=== PATIENT | female | born 1990 | race African-American/Black ===

== ENCOUNTER 2019-12-25 16:29 | Inpatient (IN) | payer MEDICAID, OTHER ==
[~2019-12-25] VITALS: Ht 160 cm; Wt 129.5 kg
[2019-12-25 18:46] LABS: Basophils # (auto) 0 10 ^3/uL (0-0.2); Basophils % (auto) 0.4 % (0.0-2.0); Eosinophils # (auto) 0.1 10 ^3/uL (0-0.8); Eosinophils % (auto) 0.8 % (0.0-7.0); Hematocrit 38.6 % (36.0-46.0); Lymphocytes # (auto) 2.8 10 ^3/uL (0.4-5.4); Lymphocytes % (auto) 41.9 % (10.0-50.0); Mean Corpuscular Hgb Conc. 33.6 g/dL (32.0-36.0); Mean Corpuscular Volume 89.2 fL (80.0-100.0); Monocytes # (auto) 0.6 10 ^3/uL (0-1.3); Monocytes % (auto) 9.3 % (0.0-12.0); Neutrophils # (auto) 3.2 10 ^3/uL (1.6-8.6); Neutrophils % (auto) 47.6 % (37.0-80.0); Nucleated Red Blood Cells % 0.1 %; Platelet Count (auto) 264 10^3/uL (140-450); Red Blood Cells 4.33 10^6/uL (4.0-5.20); Red Cell Distribution Width 13.2 % (11.8-14.3); White Blood Cell 6.6 10^3/uL (4.4-10.8)
[2019-12-25 19:04] LABS: Albumin 3.6 g/dL (3.4-5.0); Calcium 8.9 mg/dL (8.5-10.1); Potassium 3.6 mmol/L (3.5-5.1)
[2019-12-25 19:06] LABS: BUN/Creatinine Ratio 9.6
[2019-12-25 19:08] LABS: Bilirubin, Total 0.2 mg/dL (0.2-1.0); Total Protein 7.5 g/dL (6.4-8.2)
[2019-12-25 19:28] LABS: Urine Bacteria NONE SEEN /hpf (None Seen); Urine Blood Negative /uL (Negative); Urine Hyaline Cast FEW /lpf (0 - 2); Urine Mucus FEW (None Seen); Urine Specific Gravity 1.021 (1.001-1.035); Urine WBC 1 /hpf (0 - 5)
[2019-12-25] MEDS ORDERED: DOCUSATE SOD 100 MG CAP PO PRN (21:00)
[2019-12-25] MEDS ORDERED: MORPHINE SULF INJ 2 MG/ML SYRINGE 1ML IV PRN (21:00)
[2019-12-25] MEDS ORDERED: TEMAZEPAM 15 MG CAP PO PRN (21:00)
[2019-12-25] MEDS ORDERED: ACETAMINOPHEN 325 MG TAB PO PRN (21:00)
[2019-12-25] MEDS ORDERED: LORazepam 0.5 MG TAB PO PRN (21:00)
[2019-12-25] MEDS: SODIUM CHLORIDE 0.9% 1,000 ML IV SCH (21:54)
[2019-12-25 23:23] VITALS: BP 130/80
--- NOTE | 2019-12-25 23:23 | NUR ---
[facility] admit from [facility] admitted to [facility]. Patient oriented to Ciara Perez, primary RN, unit, room, bed, and unit policies regarding patient care and visiting hours. Patient weighed by bedscale and encouraged to call if they need something. All questions and concerns addressed, patient verbalized understanding.
[2019-12-25] MEDS: ONDANSETRON HCL 4 MG/2 ML VIAL IV PRN (23:37)
--- NOTE | 2019-12-26 00:21 | NUR ---
Patient ambulated Patient ambulated to restroom independently with even, steady gait. Patient reconnected to IV fluids after returning to bed. Will continue to monitor.
[2019-12-26] MEDS ORDERED: CHOL20007 PO (00:57)
[2019-12-26] MEDS: HYDROcodone-ACET 5/325MG TAB PO PRN ×2 (01:31→20:11)
[2019-12-26] MEDS: SODIUM CHLORIDE 0.9% 1,000 ML IV SCH ×3 (03:06→10:05)
[2019-12-26 05:12] LABS: Basophils # (auto) 0 10 ^3/uL (0-0.2); Basophils % (auto) 0.4 % (0.0-2.0); Eosinophils # (auto) 0.1 10 ^3/uL (0-0.8); Eosinophils % (auto) 0.8 % (0.0-7.0); Hematocrit 35.7 % (36.0-46.0); Lymphocytes # (auto) 3.3 10 ^3/uL (0.4-5.4); Lymphocytes % (auto) 43.8 % (10.0-50.0); Mean Corpuscular Hgb Conc. 33.6 g/dL (32.0-36.0); Mean Corpuscular Volume 89.3 fL (80.0-100.0); Monocytes # (auto) 0.5 10 ^3/uL (0-1.3); Monocytes % (auto) 6.7 % (0.0-12.0); Neutrophils # (auto) 3.6 10 ^3/uL (1.6-8.6); Neutrophils % (auto) 48.3 % (37.0-80.0); Nucleated Red Blood Cells % 0.1 %; Platelet Count (auto) 247 10^3/uL (140-450); Red Cell Distribution Width 13.3 % (11.8-14.3); White Blood Cell 7.5 10^3/uL (4.4-10.8)
[2019-12-26 05:21] VITALS: BP 125/76
[2019-12-26 05:31] LABS: Potassium 3.6 mmol/L (3.5-5.1)
[2019-12-26 05:40] LABS: BUN/Creatinine Ratio 11.8; Calcium 7.9 mg/dL (8.5-10.1)
--- NOTE | 2019-12-26 07:30 | NUR ---
Opening Shift Note Assumed care of patient, awake and alert. No S/S of distress/SOB or pain. Instructed on POC and to call for assist PRN, will continue to monitor for changes Q1hr and PRN. Bed is locked and in lowest position. Call light within reach.
[2019-12-26 08:00] VITALS: BP 110/74
[2019-12-26 09:00] VITALS: BP 110/74
[2019-12-26] MEDS ORDERED: PANTOPRAZOLE 40 MG/10 ML VIAL INJ IV SCH (10:00)
[2019-12-26] MEDS: LISINOPRIL 20 MG TAB PO SCH (10:09)
--- NOTE | 2019-12-26 11:56 | NUR ---
GI CONSULT DR. AHUMADA AT BEDSIDE FOR GI CONSULT. DR. AHUMADA ORDERED CLEAR LIQUID DIET TOLERATED. PROCEDURE EGD PLAN FOR TOMORROW AT [address] AHUMADA. WILL CARRY OUT MD ORDERS.
[2019-12-26] MEDS: LACTATED RINGER'S 1,000 ML IV SCH ×2 (12:25→21:34)
[2019-12-26 13:00] VITALS: BP 132/66
--- NOTE | 2019-12-26 15:12 | NUR ---
Nutrition Assessment Notes Please refer to link for full assessment notes. Est Energy needs: 8865-2905 kcals (12-15 kcal/kgBW) Est Protein needs: 105-131 gms/day (2.0-2.5 gm/kgBW) Will continue to monitor and reassess prn. Addendum: 12/26/19 at [address] Amended: Links added.
--- NOTE | 2019-12-26 16:10 | NUR ---
COVID-19 TEST COVID-19 SWAB COLLECTED AND TAKEN TO LAB. WILL AWAIT TEST RESULTS.
[2019-12-26 17:15] VITALS: BP 126/76
[2019-12-26] MEDS ORDERED: ATORVASTATIN 20 MG TAB PO SCH ×2 (18:00→22:00)
[2019-12-26] MEDS: SUCRALFATE 1 GM/10 ML ORAL SUSP PO SCH ×2 (18:19→21:30)
--- NOTE | 2019-12-26 19:35 | NUR ---
Opening Shift Note Assumed care of patient, awake and alert oriented x4. No S/S of distress/SOB noted. Instructed on POC and to call for assist PRN. Bed is in lowest locked position with bed rails up x2 and call light is within reach of the patient.
[2019-12-26] MEDS: PANTOPRAZOLE 40 MG TAB PO SCH (21:34)
[2019-12-26 22:00] VITALS: BP 129/73
[2019-12-27 05:00] VITALS: BP 149/102
[2019-12-27] MEDS: LACTATED RINGER'S 1,000 ML IV SCH (06:09)
[2019-12-27] MEDS: SUCRALFATE 1 GM/10 ML ORAL SUSP PO SCH ×3 (06:09→17:20)
[2019-12-27 06:23] LABS: INR 1.04 (0.9-1.15)
[2019-12-27 08:00] VITALS: BP 121/71
[2019-12-27 08:35] VITALS: BP 121/71
[2019-12-27] MEDS: ONDANSETRON HCL 4 MG/2 ML VIAL IV PRN (08:49)
[2019-12-27] MEDS ORDERED: LIDOCAINE VISCOUS 2% 15ML UD ONE (09:39)
[2019-12-27] MEDS ORDERED: SODIUM CHLORIDE LOCK 10 ML ONE (09:39)
[2019-12-27] MEDS ORDERED: FLUMAZENIL 0.1 MG/ML INJ 10ML MDV IV ONE (09:39)
[2019-12-27] MEDS ORDERED: NALOXONE HCL 0.4 MG/ML VIAL ONE (09:39)
[2019-12-27] MEDS ORDERED: diphenhdrAMINE HCL 50 MG/1 ML VL ONE (09:40)
[2019-12-27] MEDS: LISINOPRIL 20 MG TAB PO SCH (09:46)
[2019-12-27] MEDS: PANTOPRAZOLE 40 MG TAB PO SCH (09:46)
--- NOTE | 2019-12-27 10:26 | NUR ---
OR PATIENT DOWN TO OR FOR EGD PROCEDURE WITH DR. AHUMADA. PATIENT TRANSPORTED TO POST-OP IN BED WITH NO SIGNS OF DISTRESS OR SOB. WILL AWAIT PATIENT RETURN.
[2019-12-27] MEDS: fentaNYL CITRATE 100 MCG/2 ML VL ONE ×2 (10:36→10:40)
[2019-12-27] MEDS: MIDAZOLAM HCL 5 MG/ML-1ML VIAL ONE ×2 (10:36→10:40)
[2019-12-27 12:30] VITALS: BP 121/80
[2019-12-27 14:10] LABS: Basophils # (auto) 0 10 ^3/uL (0-0.2); Basophils % (auto) 0.3 % (0.0-2.0); Eosinophils # (auto) 0 10 ^3/uL (0-0.8); Eosinophils % (auto) 0.8 % (0.0-7.0); Hematocrit 39.2 % (36.0-46.0); Lymphocytes # (auto) 1.8 10 ^3/uL (0.4-5.4); Lymphocytes % (auto) 28.4 % (10.0-50.0); Mean Corpuscular Hemoglobin 29.6 pg (28.0-32.0); Mean Corpuscular Hgb Conc. 33.2 g/dL (32.0-36.0); Mean Corpuscular Volume 89.2 fL (80.0-100.0); Monocytes # (auto) 0.4 10 ^3/uL (0-1.3); Monocytes % (auto) 6.8 % (0.0-12.0); Neutrophils % (auto) 63.7 % (37.0-80.0); Platelet Count (auto) 251 10^3/uL (140-450); Red Cell Distribution Width 13.4 % (11.8-14.3); White Blood Cell 6.3 10^3/uL (4.4-10.8)
[2019-12-27 14:27] LABS: Albumin 3.4 g/dL (3.4-5.0); BUN/Creatinine Ratio 6.5; Calcium 8.7 mg/dL (8.5-10.1)
[2019-12-27 14:29] LABS: Bilirubin, Total 0.5 mg/dL (0.2-1.0); Total Protein 7.1 g/dL (6.4-8.2)
[2019-12-27 16:59] VITALS: BP 108/70
[2019-12-27] MEDS ORDERED: SUCR1TAB22 OR (19:32)
[2019-12-27] MEDS ORDERED: PANT40T PO (19:32)
[2019-12-27 19:40] VITALS: BP 127/87
--- NOTE | 2019-12-27 20:40 | NUR ---
Regular Discharge See your PCP and GI within 1 week of discharge. PCP: Radha Grover Number: [phone] Address: [address], [place] [address] No appointment made, after hours. Follow up with physician in one week. GI: Germain Gonsalez Number:[phone] Address: [address] [place] [address], [address]. No appointment made, after hours. Follow up with physician in one week. Discharge information and follow up information provided to the patient. Patient verbalized understanding. Iv removed and secured with coband. Patient discharged with all of her belongings and wheeled down to car via wheel chair. No S/S of distress SOB or pain noted.
== END 2019-12-27 20:40 | disposition home health service (06) | DRG 282 ==
LOC: ER 16:29 → OVERFLOW 21:19 → WEST WING 23:23
PROVIDERS: ADMIT Hospitalist; ATTEND Hospitalist
PROC: 0DB68ZX Excision of Stomach, Via Natural or Artificial Opening Endoscopic, Diagnostic (ICD-10-PCS; principal; 2019-12-27 10:33)
DX: K85.90 Acute pancreatitis without necrosis or infection, unspecified (principal); K29.70 Gastritis, unspecified, without bleeding; E66.01 Morbid (severe) obesity due to excess calories; Z68.43 Body mass index [BMI] 50.0-59.9, adult; E78.5 Hyperlipidemia, unspecified; F12.90 Cannabis use, unspecified, uncomplicated; K59.00 Constipation, unspecified; Z20.828 Contact with and (suspected) exposure to other viral communicable diseases
CPT/HCPCS: 36415; 43239; 74176; 76705; 80048; 80053; 80061; 81001; 81025; 82150; 83690; 85025; 85610; 85730; C9113; G0378; J2250; J2405

== ENCOUNTER 2021-04-16 00:54 | Emergency (ER) | payer MEDICAID ==
[~2021-04-16] VITALS: Ht 160 cm; Wt 127.0 kg
[~2021-04-16 00:54] MED LIST: CHOL20007 PO; PANT40T PO; SUCR1TAB22 OR
[2021-04-16 00:57] VITALS: BP 125/83
== END 2021-04-16 05:29 | disposition left against medical advice (07) ==
LOC: ER 00:57
DX: O21.8 Other vomiting complicating pregnancy (principal); R51.9 Headache, unspecified; G47.00 Insomnia, unspecified; Z3A.01 Less than 8 weeks gestation of pregnancy; Z53.21 Procedure and treatment not carried out due to patient leaving prior to being seen by health care provider

== ENCOUNTER 2023-09-03 11:34 | Emergency (ER) | payer MEDICAID ==
[~2023-09-03] VITALS: Ht 162.6 cm; Wt 119.0 kg
[~2023-09-03 11:34] MED LIST changes: -SUCR1TAB22 OR; +SUCR1TAB31 OR
[2023-09-03] MEDS: ACETAMINOPHEN 325 MG TAB PO ONE (12:37)
[2023-09-03] MEDS ORDERED: ACET500T58 PO (13:34)
[2023-09-03] MEDS ORDERED: PROM1SOL4 PO (13:34)
[2023-09-03] MEDS ORDERED: IBUP1TAB5 PO (13:34)
[2023-09-03] MEDS ORDERED: AUG875T PO (13:34)
[2023-09-03 13:38] VITALS: BP 148/88; PULSE 94; RESP 18; TEMP 100.4; O2SAT 98
== END 2023-09-03 13:40 | disposition home or self-care (01) ==
LOC: ER 11:34
DX: B34.9 Viral infection, unspecified (principal); F12.10 Cannabis abuse, uncomplicated; J06.9 Acute upper respiratory infection, unspecified